=== PATIENT | male | born 1965 | race African-American/Black ===

== ENCOUNTER 2017-04-15 16:42 | Emergency (ER) | payer OTHER ==
[2017-04-15 16:51] VITALS: BP 108/72; PULSE 70; TEMP 98; BMI 28.2
[2017-04-15] MEDS ORDERED: ASPIRIN 81 MG CHEWABLE TABLETS PO ONE (18:03)
--- NOTE | 2017-04-15 18:03 | PDOC ---
History of Present Illness - General History Source: Patient Exam Limitations: No Limitations <Anahy Booker - Last Filed: 04/15/17 18:53> <NavidXochitl Snow - Last Filed: 04/15/17 21:19> - General Chief Complaint: Chest Pain Stated Complaint: CHEST PAIN Time Seen by Provider: 04/15/17 17:40 - History of Present Illness Initial Comments: 04/15/17 18:53 The patient is a 52 year old male, with significant past medical history of left nephrectomy (2008) , who presents to the emergency room complaining of intermittent, nonexertional chest pain over the past 6 months, and numbness and tingling to the left upper and lower extremity that occurs after working out. The patient notes that he visited Dr. Antonio about 6 months ago for a treadmill stress test and was told that he had some kind of ischemia. He never followed up with Dr. Antonio. He comes into the emergency room today because the chest pain has been occurring more frequently than usual. He reports that the chest pain is not exacerbated after eating. He reports that he has an extensive family history of cancer, kidney disease, etc. which has caused him to be more on top of his health issues. Because of this reason, he has been working out more frequently and noticed that he experiences numbness and tingling that starts in his buttocks and travels down the back and front of the left thigh. Denies SOB, palpitations, cough. Denies fever, chills, nausea, vomiting. Allergies: No known allergies Social hx: Tobacco use (1ppd for 45 years). Surgical hx: Left nephrectomy (2008) Family Hx: Sister of kidney failure at age 41; Mother had breast CA; Father had prostate CA. Brother also had cancer. He notes that he had a recent visit with Dr. Galan for a colonoscopy which was normal. He also recently had his prostate checked. (Anahy Booker) Past History <Anahy Booker - Last Filed: 04/15/17 18:53> - Past Medical History Anemia: No Asthma: No - Immunization History Immunization Up to Date: Yes - Psycho/Social/Smoking Cessation Hx Anxiety: No Suicidal Ideation: No Smoking History: Current some day smoker Have you smoked in the past 12 months: Yes Number of Cigarettes Smoked Daily: 6 Information on smoking cessation initiated: No 'Breaking Loose' booklet given: 12/07/13 Hx Alcohol Use: No Drug/Substance Use Hx: No Substance Use Type: None <Xochitl Shoemaker - Last Filed: 04/15/17 21:19> - Past Medical History Allergies/Adverse Reactions: Allergies Allergy/AdvReac Type Severity Reaction Status Date / Time No Known Allergies Allergy Verified 04/15/17 16:51 Home Medications: Ambulatory Orders NK [No Known Home Medication] 12/06/15 Cardiac Specific PMH - Complaint Specific PMHX GERD: No <Xochitl Shoemaker - Last Filed: 04/15/17 21:19> Review of Systems - Review of Systems Able to Perform ROS?: Yes <Anahy Booker - Last Filed: 04/15/17 18:53> <Xochitl Shoemaker - Last Filed: 04/15/17 21:19> - Review of Systems Comments:: 04/15/17 18:54 CONSTITUTIONAL: Absent: fever, chills, diaphoresis, generalized weakness, malaise, loss of appetite HEENT: Absent: rhinorrhea, nasal congestion, throat pain, throat swelling, difficulty swallowing, mouth swelling, ear pain, eye pain, visual Changes CARDIOVASCULAR: Present: intermittent chest pain. Absent: syncope, palpitations, irregular heart rate, lightheadedness, peripheral edema RESPIRATORY: Absent: cough, shortness of breath, dyspnea with exertion, orthopnea, wheezing, stridor, hemoptysis MUSCULOSKELETAL: Absent: myalgia, arthralgia, joint swelling SKIN: Absent: rash, itching, pallor NEUROLOGIC: Present: subjective peripheral neuropathy to the LUE and LLE Absent: headache, focal weakness, dizziness, unsteady gait, seizure, mental status changes, bladder or bowel incontinence (Anahy Booker) *Physical Exam <Anahy Booker - Last Filed: 04/15/17 18:53> <Xochitl Shoemaker - Last Filed: 04/15/17 21:19> - Vital Signs Last Vital Signs Temp Pulse Resp BP Pulse Ox 98 F 70 18 108/72 99 04/15/17 16:43 04/15/17 16:43 04/15/17 16:43 04/15/17 16:43 04/15/17 16:43 - Physical Exam Comments: 04/15/17 18:55 GENERAL: Well developed, well nourished. Awake and alert. No acute distress. HEENT: Normocephalic, atraumatic. PERRLA, EOMI. No conjunctival pallor. Sclera are non- icteric. Moist mucous membranes. Oropharynx is clear. NECK: Supple. Full ROM. No JVD. Carotid pulses 2+ and symmetric, without bruits. No thyromegaly. No lymphadenopathy. CARDIOVASCULAR: Regular rate and rhythm. No murmurs, rubs, or gallops. Distal pulses are 2+ and symmetric. PULMONARY: No evidence of respiratory distress. Lungs clear to auscultation bilaterally. No wheezing, rales or rhonchi. MUSCULOSKELETAL Normal range of motion at all joints. No bony deformities or tenderness. No CVA tenderness. EXTREMITIES: No cyanosis. No clubbing. No pitting edema. No calf tenderness. SKIN: Warm and dry. Normal capillary refill. No rashes. No jaundice. NEUROLOGICAL: Subjective numbness and tingling to the left upper extremity, and left lower extremity. Alert, awake, appropriate. Cranial nerves 2-12 intact. No gross focal neurological deficits. PSYCHIATRIC: Cooperative. Good eye contact. Appropriate mood and affect. (Anahy Booker) Heart Score/ECG Review #1 Compared to previous ECG there are: No significant change <Anahy Booker - Last Filed: 04/15/17 18:53> <Xochitl Shoemaker - Last Filed: 04/15/17 21:19> #1 04/15/17 18:55 Zach at 56 (Anahy Booker) ED Treatment Course - LABORATORY CBC & Chemistry Diagram: 04/15/17 18:50 04/15/17 18:50 <Xochitl Shoemaker - Last Filed: 04/15/17 21:19> - ADDITIONAL ORDERS Additional order review: Laboratory Results 04/15/17 04/15/17 18:50 18:50 INR 1.11 Sodium 141 Potassium 4.1 Chloride 108 H Carbon Dioxide 26 Anion Gap 7 L BUN 18 D Creatinine 1.3 Creat Clearance w eGFR 57.97 Random Glucose 95 Calcium 8.9 Magnesium 2.0 Total Bilirubin 0.3 D AST 9 L ALT 24 Alkaline Phosphatase 63 Creatine Kinase 68 Troponin I < 0.02 Total Protein 6.9 Albumin 3.4 04/15/17 18:50 RBC 4.43 MCV 86.7 MCHC 33.6 RDW 13.1 MPV 9.1 D Neutrophils % 54.5 D Lymphocytes % 32.7 D Monocytes % 8.9 Eosinophils % 3.1 Basophils % 0.8 - RADIOLOGY Radiology Studies Ordered: Category Date Time Status CHEST X-RAY PORTABLE* [RAD] Stat Radiology 04/15/17 18:04 Taken - Medications Given in the ED: ED Medications Discontinued Medications Generic Name Dose Route Start Last Admin Trade Name Davidq PRN Reason Stop Dose Admin Al Hydroxide/Mg Hydroxide 30 ml 04/15/17 18:04 04/15/17 18:49 Mylanta Oral Suspension - PO 04/15/17 18:05 30 ml ONCE ONE Administration Aspirin 162 mg 04/15/17 18:03 04/15/17 18:49 Asa - PO 04/15/17 18:04 162 mg ONCE ONE Administration Medical Decision Making <Anahy Booekr - Last Filed: 04/15/17 18:53> <Xochitl Shoemaker - Last Filed: 04/15/17 21:19> - Medical Decision Making 04/15/17 18:19 This male has had intermittent chest pain for the past 6 months. States that he did have a stress test a Dr. Antonio's office that showed some ischemia but he didn't return for follow-up 04/15/17 20:57 Patient has been to the hospital for chest pain in the past and otherwise had a negative workup. TODAY On exam, however, he has epigastric doscomfort -he has been diagnosed with GERD and placed on Protonix in the past They have found gallstones on his last ultrasound. Impression atypical chest pain, epigastric pain. Patient told to follow up with Dr. Antonio. REstart taking his protonix (Xochitl Shoemaker) *DC/Admit/Observation/Transfer <Anahy Booker - Last Filed: 04/15/17 18:53> <Xochitl Shoemaker - Last Filed: 04/15/17 21:19> Diagnosis at time of Disposition: Epigastric abdominal pain, Atypical chest pain - Discharge Dispostion Disposition: HOME Condition at time of disposition: Stable - Referrals Referrals: Ruddy Martin MD [Primary Care Provider] - Joe Antonio MD [Staff Physician] - - Patient Instructions Printed Discharge Instructions: DI for Atypical Chest Pain, DI for Epigastric Pain Additional Instructions: please return to your hydrotherapist to complete your studies Return to the emergency department for any worsening symptoms - Attestations Scribe Attestion: 04/15/17 18:56 Documentation prepared by VONNIE Mo, acting as medical orderly for Xochitl Shoemaker MD. (Anahy Booker)
[2017-04-15] MEDS ORDERED: MAG HYDROX/AL HYDROX/SIMETH 30 ML UNIT-DOSE CUP PO ONE (18:04)
[2017-04-15] MEDS ORDERED: ASPIRIN 81 MG CHEWABLE TABLETS ONE (18:55)
[2017-04-15] MEDS ORDERED: MAG HYDROX/AL HYDROX/SIMETH 30 ML UNIT-DOSE CUP ONE (18:55)
[2017-04-15 19:02] LABS: BASOPHIL 0.8 % (0-2.0); EOSINOPHIL 3.1 % (0-4.5); MCH 29.1 pg (25.7-33.7); MCHC 33.6 g/dl (32.0-35.9); MEAN CELL VOLUME 86.7 fl (80-96); MEAN PLT VOLUME 9.1 fl (7.5-11.1); NEUTROPHILS 54.5 % (42.8-82.8); PLATELET COUNT 234 K/MM3 (134-434); RDW 13.1 % (11.9-15.9); WHITE BLOOD COUNT 8.4 K/mm3 (4.0-10.0)
[2017-04-15 19:23] LABS: INR 1.11 (0.82-1.09); PROTHROMBIN TIME (PATIENT) 12.2 SEC (9.98-11.88)
[2017-04-15 19:32] LABS: ALBUMIN 3.4 g/dl (3.4-5.0); ANION GAP 7 (8-16); BILIRUBIN,TOTAL 0.3 mg/dL (0.2-1.0); CALCIUM 8.9 mg/dL (8.5-10.1); CO2 26 mmol/L (21-32); CREATININE 1.3 mg/dL (0.7-1.3); GLUCOSE,RANDOM 95 mg/dL (74-106); SGOT/AST 9 U/L (15-37); SGPT/ALT 24 U/L (12-78); TOT PROT 6.9 g/dl (6.4-8.2)
[2017-04-15 19:35] LABS: ALK PHOS 63 U/L (45-117); CPK 68 IU/L (39-308); TROPONIN I < 0.02 ng/ml (0.00-0.05)
--- NOTE | 2017-04-16 12:03 | EKG ---
Test Reason : Blood Pressure : / mmHG Vent. Rate : 056 BPM Atrial Rate : 056 BPM P-R Int : 154 ms QRS Dur : 102 ms QT Int : 398 ms P-R-T Axes : 068 073 050 degrees QTc Int : 384 ms SINUS BRADYCARDIA OTHERWISE NORMAL ECG WHEN COMPARED WITH ECG OF 06-DEC-2015 10:13, NO SIGNIFICANT CHANGE WAS FOUND REPEAT EKG IF CLINICALLY INDICATED Confirmed by MARIO GOLD MD ([id number]) on 04/16/2017 12:02:46 PM Referred By: Confirmed By:MARIO GOLD MD
== END 2017-04-15 21:33 | disposition home or self-care (01) ==
LOC: JER 16:42
DX: R10.13 Epigastric pain (principal); R07.89 Other chest pain; F17.210 Nicotine dependence, cigarettes, uncomplicated; Z90.5 Acquired absence of kidney
CPT/HCPCS: 36415; 71010-TC; 80053; 83690; 83735; 84484; 85025; 85610; 93005; 93010; 99284-25

== ENCOUNTER 2020-02-12 09:38 | Day surgery (SDC) | payer OTHER ==
[2020-02-11 08:38] VITALS: BMI 30.8
--- NOTE | 2020-02-12 09:19 | HP ---
History & Physical Update - History History: No Change - Physical Physical: No Change - Assessment Assessment: No Change - Plan Plan: No Change
[2020-02-12] MEDS ORDERED: oxyCODONE HCL 5 MG TABLET PO PRN (11:26)
[2020-02-12] MEDS ORDERED: ONDANSETRON 4 MG/2 ML VIAL IVPUSH PRN (11:26)
[2020-02-12] MEDS ORDERED: LACTATED RINGERS SOLUTION 1,000 ML IV SCH (11:30)
[2020-02-12] MEDS ORDERED: MIDAZOLAM HCL 2 MG/2 ML SINGLE DOSE VIAL ONE (12:52)
[2020-02-12] MEDS ORDERED: PROPOFOL 20 ML ONE ×2 (13:02→14:47)
[2020-02-12] MEDS ORDERED: ceFAZolin SODIUM 1 GM VIAL IVPB ONE (13:04)
[2020-02-12] MEDS ORDERED: ROCURONIUM BROMIDE 50 MG/5 ML SYRINGE ONE (13:19)
[2020-02-12] MEDS ORDERED: NEOSTIGMINE METHYLSULFATE 0.5 MG/1 ML - 10 ML MDV ONE (13:19)
[2020-02-12] MEDS ORDERED: GLYCOPYRROLATE 0.2 MG/1 ML VIAL ONE ×3 (13:19→13:46)
[2020-02-12] MEDS ORDERED: BUPIVACAINE HCL/PF 0.5% (5 MG/ML) 30 ML VIAL IJ ONE ×2 (13:20)
[2020-02-12] MEDS ORDERED: ONDANSETRON 4 MG/2 ML VIAL ONE (13:46)
[2020-02-12] MEDS ORDERED: DEXAMETHASONE SOD PHOSPHATE 4 MG/1 ML VIAL ONE (13:46)
[2020-02-12] MEDS ORDERED: LIDOCAINE HCL 2% JELLY (5 ML/TUBE) ONE (13:46)
[2020-02-12] MEDS ORDERED: oxyCODONE HCL 5 MG TABLET ONE (16:52)
[2020-02-12 17:13] VITALS: BP 112/67; PULSE 53; TEMP 96.8
--- NOTE | 2020-02-12 23:58 | OP ---
DATE OF OPERATION: 02/12/2020 PROCEDURE: Laparoscopic cholecystectomy. PREOPERATIVE DIAGNOSIS: Chronic cholecystitis and cholelithiasis. POSTOPERATIVE DIAGNOSIS: Chronic cholecystitis and cholelithiasis. SURGEON: Tyler Moore MD. SKID ROAD WORKER: MICHAEL Olivares ANESTHESIA: General endotracheal anesthesia. FINDINGS AND PROCEDURE: This is a 55-year-old male with history of acute cholecystitis more than 2 months ago who now presents for interval cholecystectomy. Physical examination: Patient has no right upper quadrant tenderness. Preoperative ultrasound revealed a gallbladder with multiple large stones and a 6-mm common bile duct. However, patient has normal liver function tests. So patient was consented for removal of the gallbladder after discussing the risks, benefits, and alternatives to the procedure. DESCRIPTION OF PROCEDURE: Patient was brought to the operating room and placed in supine position. General endotracheal anesthesia was administered. The abdomen was prepped and draped in the usual sterile fashion. Using 0.5% Marcaine, local anesthesia was administered to the proposed incision sites. The peritoneal cavity was entered using the Optiview technique. A 5-mm umbilical incision using a 5- mm, 0-degree scope inserted in a 5-mm umbilical port. Pneumoperitoneum was established. Patient was then placed in the reverse Trendelenburg, left side down position. A 12-mm port was inserted into the subxiphoid region and two 5-mm ports were inserted at the right subcostal region at the midclavicular and anterior axillary lines. The gallbladder was visualized, and the fundus was grasped and retracted superiorly. The gallbladder was noted to be still mildly edematous and somewhat fibrotic. The large stone was noted in the neck of the infundibulum and this was pushed towards the fundus to enable grasping of the infundibulum. The infundibulum was retracted inferolaterally to expose the hepatocystic triangle. The visceral peritoneum covering the triangle was scored to expose the cystic duct and cystic artery. During this maneuver, the proximal gallbladder wall was inadvertently punctured resulting in bile leak. This was suctioned and irrigated. The cystic duct was initially carefully isolated and clipped at 3 points followed by transection leaving 2 clips at the cystic duct stump. The cystic artery was likewise isolated, clipped at 3 points, followed by transection leaving 2 clips at the cystic artery stump. The gallbladder was then transected on its side in antegrade fashion using the hook dissector connected to monopolar cautery. After this was done, the gallbladder was placed in endobag and extracted via the subxiphoid incision which was slightly lengthened to accommodate the large stone in the gallbladder. Afterwards, the peritoneal cavity, the right hepatic gutter and the Morison pouch were copiously irrigated with normal saline until return was clear. The pneumoperitoneum was evacuated, and the ports were removed. The wounds were closed with 1 [id number] Vicryl 0 suture for the fascia of the subxiphoid port and subcuticular Biosyn 4 sutures for the skin. Wound closure was reinforced with Dermabond. Patient was successfully extubated and transferred to the post anesthesia care unit in satisfactory condition. Estimated blood loss was about 25 mL. Wound class clean, contaminated. The patient received 2 g Ancef prior to the start of the procedure. Betsy [id number] MTDD
--- NOTE | 2020-02-29 15:00 | PATH ---
Surgical Pathology Report Patient Name: MARK PUCKETT [facility]. Rec. #: [id number] /Age/Gender: 1965 (Age: 55) / M Account: [id number] Location: [facility] SURGICAL Taken: 02/12/2020 Received: 02/15/2020 Reported: 02/16/2020 Physicians: Tyler Moore M.D. Specimen(s) Received GALLBLADDER Clinical History Chronic cholecystitis Final Diagnosis GALLBLADDER, CHOLECYSTECTOMY: MILD ACUTE SUPERIMPOSED ON CHRONIC CHOLECYSTITIS. CHOLELITHIASIS. Electronically Signed Anisa Cullen M.D. Gross Description Received in formalin, labeled "gallbladder," is a 7.8 x 2.6 x 1.9 cm. gallbladder with a 0.2 cm. in length portion of cystic duct attached. The outer surface is scales-pink and varies from smooth to shaggy. The lumen contains green, tenacious bile as well as multiple scales-brown, irregular to fragmented choleliths ranging from 0.1-1.7 cm in greatest dimension. The mucosa is green and velvety with focal erosions. There are small submucosal cystic spaces throughout the specimen. The wall of the gallbladder ranges from 0.1-0.7 cm. in thickness. Epitaxial Reactor Operator sections are submitted in one cassette. 02/15/2020 [facility]02/15/2020
== END 2020-02-12 17:52 | disposition home or self-care (01) ==
LOC: JASU-SURG 09:38
PROVIDERS: ATTEND Surgery
PROC: 0FT44ZZ Resection of Gallbladder, Percutaneous Endoscopic Approach (ICD-10-PCS; principal; 2020-02-12 11:30)
DX: K80.10 Calculus of gallbladder with chronic cholecystitis without obstruction (principal)
CPT/HCPCS: 88304-TC; 94760

== ENCOUNTER 2021-02-22 04:37 | Day surgery (SDC) | payer OTHER ==
[2021-02-20 18:06] VITALS: BMI 30.8
[2021-02-22] MEDS ORDERED: BUPIVACAINE HCL/PF 0.75% 10 ML VIAL ONE (07:35)
[2021-02-22] MEDS ORDERED: LIDOCAINE HCL/PF 1% SDV 5ML VIAL ONE (07:47)
[2021-02-22] MEDS ORDERED: LIDOCAINE HCL 1% PRESERVATIVE FREE - 30ML VIAL IJ ONE (09:29)
[2021-02-22] MEDS ORDERED: IOHEXOL 180 MG/1 ML ML IJ ONE ×2 (09:29)
[2021-02-22] MEDS ORDERED: BUPIVACAINE HCL/PF 0.75% 10 ML VIAL NR ONE ×2 (09:30)
[2021-02-22 10:17] VITALS: BP 127/70; PULSE 56; TEMP 97.2
== END 2021-02-22 10:15 | disposition home or self-care (01) ==
LOC: JASU-SURG 04:37
PROVIDERS: ATTEND Pain Medicine Pain Medicine
PROC: BR16YZZ Fluoroscopy of Lumbar Facet Joint(s) using Other Contrast (ICD-10-PCS; 2021-02-22)
PROC: 3E0T3BZ Introduction of Anesthetic Agent into Peripheral Nerves and Plexi, Percutaneous Approach (ICD-10-PCS; principal; 2021-02-22 09:00)
DX: M47.816 Spondylosis without myelopathy or radiculopathy, lumbar region (principal)
CPT/HCPCS: 76000-TC-FY

== ENCOUNTER → 2021-03-17 | Day surgery (SDC) | payer OTHER ==
[~2021-03-17] MED LIST: BUPIVACAINE HCL/PF 0.75% 10 ML VIAL NR ONE; BUPIVACAINE HCL/PF 0.75% 10 ML VIAL ONE; IOHEXOL 180 MG/1 ML ML IJ ONE; LIDOCAINE HCL 1% PRESERVATIVE FREE - 30ML VIAL IJ ONE; LIDOCAINE HCL/PF 1% SDV 5ML VIAL ONE
[2021-03-17 10:43] VITALS: PULSE 68
[2021-03-17 11:43] VITALS: BP 130/70; TEMP 98
== END | disposition home or self-care (01) ==
LOC: JASU-SURG 04:36
PROVIDERS: ATTEND Pain Medicine Pain Medicine
PROC: 3E0T33Z Introduction of Anti-inflammatory into Peripheral Nerves and Plexi, Percutaneous Approach (ICD-10-PCS; 2021-03-17)
PROC: 3E0T3BZ Introduction of Anesthetic Agent into Peripheral Nerves and Plexi, Percutaneous Approach (ICD-10-PCS; principal; 2021-03-17 09:30)
DX: M47.816 Spondylosis without myelopathy or radiculopathy, lumbar region (principal)
CPT/HCPCS: 76000-TC-FY